=== PATIENT | male | born 2000 | race Caucasian/White ===

== ENCOUNTER 2020-10-16 23:06 | Emergency (ER) | payer MEDICAID ==
[~2020-10-16] VITALS: Ht 177.8 cm; Wt 99.8 kg
[2020-10-16 23:32] LABS: URINE BILIRUBIN NEGATIVE (Negative); URINE BLOOD NEGATIVE (Negative); URINE CLARITY CLEAR; URINE COLOR YELLOW; URINE GLUCOSE-RANDOM NEGATIVE (Negative); URINE KETONES TRACE (Negative); URINE LEUKOCYTES-REFLEX NEGATIVE (Negative); URINE NITRITE-REFLEX NEGATIVE (Negative); URINE PROTEIN NEGATIVE (Negative)
[2020-10-16 23:39] LABS: AMP/METHAMP Negative (Negative); BARBITURATES Negative (Negative); BENZODIAZEPINES Negative (Negative); COCAINE Negative (Negative); METHADONE Negative (Negative); OPIATES Negative (Negative); PCP Negative (Negative); THC Negative (Negative)
[2020-10-16] MEDS ORDERED: ABILIFY15 MG PO (23:44)
[2020-10-16] MEDS ORDERED: ZOLOFT100 MG PO (23:44)
[2020-10-16] MEDS ORDERED: DEPAKOTE500 MG PO (23:44)
[2020-10-16 23:45] LABS: ABSOLUTE EOSINOPHILS 0.2 thou/uL (0.0-0.7); ABSOLUTE LYMPHOCYTES 2.1 thou/uL (0.8-5.3); ABSOLUTE MONOCYTES 0.6 thou/uL (0.0-1.2); BASOPHILS 0.6 %; EOSINOPHILS 2.6 %; HEMATOCRIT 47.9 % (42.0-52.0); HEMOGLOBIN 15.8 gm/dL (14.0-18.0); LYMPHOCYTES 30.3 %; MCH 28.3 pg (26.0-34.0); MCV 85.8 fL (80.0-100.0); MONOCYTES 8.8 %; MPV 8.4 fl. (7.2-11.1); NUCLEATED RBCS 0 /100WBC; PLATELET COUNT* 240 thou/uL (150-400); POLYS 57.7 %; RBC 5.58 mil/uL (4.50-6.00); RDW-CV 12.8 % (10.5-14.5)
[2020-10-16 23:48] LABS: CALCIUM 9.2 mg/dL (8.5-10.1); CREATININE 0.9 mg/dL (0.6-1.3); POTASSIUM 3.8 mmol/L (3.5-5.1)
[2020-10-16 23:53] LABS: ALBUMIN 4.4 g/dL (3.4-5.0); TOTAL BILIRUBIN 0.3 mg/dL (<0.1-1.0); TOTAL PROTEIN 8.1 g/dL (6.4-8.2)
[2020-10-17 00:01] LABS: SALICYLATE < 2.8 mg/dL (2.8-20.0)
[2020-10-17 00:04] LABS: ACETAMINOPHEN < 2 ug/mL (10-30); ALCOHOL < 10 mg/dL (<10)
[2020-10-18] VITALS: BP 124/60
--- NOTE | 2020-10-18 16:25 | EKG ---
[place] [address] ELECTROCARDIOGRAM REPORT Name: RICK WALTERS V Room: [facility]#: [id number] Admission: 10/16/20 Attend Phys: Discharge: 10/18/20 Date of : 00 Date of Service: 10/17/20 170 Report #: [id number] THIS REPORT FOR: //name// [facility] ED Test Date: 2020-10-17 Test Time: 17:02:57 Pat Name: RCIK WALTERS Department: Room: Gender: Coremaker Machine: CCD : 2000 Requested By: Rosemary Mendoza Order Number: [id number] Eric MD: Micah Rivas Measurements Intervals [place] Rate: 58 P: 74 AK: 154 QRS: 67 QRSD: 86 T: 52 QT: 394 QTc: 387 Interpretive Statements Sinus rhythm Probable left atrial enlargement Baseline wander in lead(s) V2 No previous ECG available for comparison Electronically Signed On 10-18-2020 16:25:13 CDT by Micah Rivas [email or web address] <ELECTRONICALLY SIGNED> By: Micah Rivas MD, [facility] 10/18/20 7145 1702 1702 Micah Rivas MD, [facility] /EPI
== END 2020-10-18 ==
LOC: M.ERS 23:06
PROVIDERS: Emergency Medicine
DX: R45.851 Suicidal ideations (principal); Z20.822 Contact with and (suspected) exposure to COVID-19

== ENCOUNTER 2020-12-02 20:42 | Emergency (ER) | payer MEDICAID ==
[~2020-12-02] VITALS: Ht 180.3 cm; Wt 83.9 kg
[~2020-12-02 20:42] MED LIST: ABILIFY15 MG PO; DEPAKOTE500 MG PO; ZOLOFT100 MG PO
[2020-12-02 21:19] LABS: ABSOLUTE BASOPHILS 0.1 thou/uL (0.0-0.2); ABSOLUTE EOSINOPHILS 0.2 thou/uL (0.0-0.7); ABSOLUTE LYMPHOCYTES 2.1 thou/uL (0.8-5.3); ABSOLUTE MONOCYTES 0.8 thou/uL (0.0-1.2); ABSOLUTE NEUTROPHILS 4.5 thou/uL (1.6-8.1); BASOPHILS 0.7 %; EOSINOPHILS 2.7 %; HEMOGLOBIN 15.4 gm/dL (14.0-18.0); LYMPHOCYTES 27.1 %; MCHC 34.1 g/dL (28.0-37.0); MCV 84.9 fL (80.0-100.0); MPV 7.9 fl. (7.2-11.1); NUCLEATED RBCS 0 /100WBC; PLATELET COUNT* 223 thou/uL (150-400); POLYS 59.5 %; RDW-CV 13.2 % (10.5-14.5); WBC 7.6 thou/uL (4.0-11.0)
[2020-12-02 21:28] LABS: CALCIUM 9.3 mg/dL (8.5-10.1); CREATININE 0.8 mg/dL (0.6-1.3); POTASSIUM 4.1 mmol/L (3.5-5.1)
[2020-12-02] MEDS ORDERED: ABILIFY15 MG PO (21:30)
[2020-12-02] MEDS ORDERED: TRAZODONE HCL50 MG PO (21:31)
[2020-12-02] MEDS ORDERED: HYDROXYZINE PAM25 M1 PO (21:31)
[2020-12-02 21:33] LABS: ALBUMIN 4.2 g/dL (3.4-5.0); TOTAL BILIRUBIN 0.3 mg/dL (<0.1-1.0); TOTAL PROTEIN 7.8 g/dL (6.4-8.2)
[2020-12-02 21:37] LABS: ACETAMINOPHEN < 2 ug/mL (10-30); ALCOHOL < 10 mg/dL (<10); SALICYLATE < 2.8 mg/dL (2.8-20.0)
[2020-12-02 22:58] LABS: URINE BILIRUBIN NEGATIVE (Negative); URINE BLOOD NEGATIVE (Negative); URINE CLARITY CLEAR; URINE COLOR YELLOW; URINE GLUCOSE-RANDOM NEGATIVE (Negative); URINE KETONES NEGATIVE (Negative); URINE LEUKOCYTES-REFLEX NEGATIVE (Negative); URINE NITRITE-REFLEX NEGATIVE (Negative); URINE PROTEIN NEGATIVE (Negative); URINE SPECIFIC GRAVITY 1.015 (1.005-1.030); URINE UROBILINOGEN 0.2 E.U./dl (0.2-1.0)
[2020-12-02 23:16] LABS: AMP/METHAMP Negative (Negative); BARBITURATES Negative (Negative); BENZODIAZEPINES Negative (Negative); COCAINE Negative (Negative); METHADONE Negative (Negative); OPIATES Negative (Negative); PCP Negative (Negative); THC Negative (Negative)
[2020-12-03 00:50] VITALS: BP 116/62
== END 2020-12-03 00:50 | disposition home or self-care (01) ==
LOC: M.ERS 20:42
PROVIDERS: Emergency Medicine
DX: R45.851 Suicidal ideations (principal); Z20.822 Contact with and (suspected) exposure to COVID-19; F43.10 Post-traumatic stress disorder, unspecified; F84.0 Autistic disorder; Z79.899 Other long term (current) drug therapy

== ENCOUNTER 2021-01-14 22:59 | Emergency (ER) | payer MEDICAID ==
[~2021-01-14 22:59] MED LIST changes: +HYDROXYZINE PAM25 M1 PO; +TRAZODONE HCL50 MG PO
== END 2021-01-14 23:00 | disposition left against medical advice (07) ==
LOC: M.ERS 22:59
DX: Z53.21 Procedure and treatment not carried out due to patient leaving prior to being seen by health care provider (principal)